=== PATIENT | female | born 1990 | race African-American/Black ===

== ENCOUNTER 2017-11-26 02:45 | Inpatient (IN) | payer OTHER ==
[~2017-11-26] VITALS: Ht 172.7 cm; Wt 64.4 kg
[2017-11-26 02:49] VITALS: Ht 172.7 cm; Wt 64.4 kg
[2017-11-26 03:38] LABS: BASOPHIL % 0.4 % (0-2); PLATELET COUNT 368 x10^3mcL (130-400); RED CELL DISTRIBUTION WIDTH 14.2 % (11.5-14.5)
[2017-11-26 03:47] LABS: CALCIUM 8.7 mg/dL (8.5-10.1); CARBON DIOXIDE 23.7 mmol/L (21-32); CHLORIDE SERUM 106 mmol/L (98-107); GFR1 > 60 mL/min; GLUCOSE SERUM 89 mg/dL (74-106); POTASSIUM SERUM 3.6 mmol/L (3.5-5.1); SODIUM SERUM 144 mmol/L (136-145)
[2017-11-26 04:47] LABS: microscopic required? NO
[2017-11-26 05:00] LABS: UA SPECIFIC GRAVITY <=1.005 (1.005-1.035); urine erythrocyte NEGATIVE (NEGATIVE)
[2017-11-26 05:08] LABS: AMPHETAMINE QUAL UR NONE DETECTED (NEG <=1000)
[2017-11-26 05:15] LABS: T3 TOTAL 0.9 ng/mL
[2017-11-26 05:28] LABS: CHOLESTEROL/HDL RATIO 4.1; MAGNESIUM 2.4 mg/dL (1.8-2.4); PHOSPHOROUS 4.4 mg/dL (2.5-4.9)
[2017-11-26 05:32] VITALS: BP 111/62
[2017-11-26 05:36] LABS: FREE T4 1.3 ng/dL (0.76-1.46); FREE THYROXINE INDEX 3.8 ug/dL (1.4-4.5); T4(THYROXINE) 10.6 ug/dL (4.7-13.3)
[2017-11-26 05:52] VITALS: BP 111/62
[2017-11-26 09:39] VITALS: BP 112/73
[2017-11-26 13:37] VITALS: BP 123/72
[2017-11-26 17:12] VITALS: BP 145/89
[2017-11-26 21:26] VITALS: BP 133/80
[2017-11-27 04:55] VITALS: BP 113/66
[2017-11-27 06:44] LABS: PLATELET COUNT 313 x10^3mcL (130-400); RED CELL DISTRIBUTION WIDTH 14.1 % (11.5-14.5)
[2017-11-27 07:05] LABS: CALCIUM 8.8 mg/dL (8.5-10.1); CARBON DIOXIDE 25.3 mmol/L (21-32); CHLORIDE SERUM 107 mmol/L (98-107); CREATININE SERUM 0.7 mg/dL (0.6-1.0); GFR1 > 60 mL/min; GLUCOSE SERUM 144 mg/dL (74-106); POTASSIUM SERUM 4.1 mmol/L (3.5-5.1); SODIUM SERUM 143 mmol/L (136-145)
[2017-11-27 08:40] VITALS: BP 107/53
[2017-11-27 10:23] LABS: BAND NEUTROPHIL 1 % (0-10); BASOPHIL 0 % (0-2); MONOCYTE 4 % (0-7); SEGMENTED NEUTROPHILS 89 % (37-75)
[2017-11-27 10:25] LABS: PLATELET MORPHOLOGY PLATELETS NORMAL; rbc morphology (normal/abnorm) ABNORMAL (NORMAL); target cell (codocyte) 1+
[2017-11-27] MEDS ORDERED: MEDDP PO (11:28)
[2017-11-27 11:58] VITALS: BP 107/53
== END 2017-11-27 12:23 | disposition home or self-care (01) | DRG 915 ==
LOC: ED 02:45 → DU 04:24 → MU 04:24 → DU 05:20 → MU 11-27 07:57
PROVIDERS: Emergency Medicine; Family Medicine
DX: T78.3XXA Angioneurotic edema, initial encounter (principal); N17.0 Acute kidney failure with tubular necrosis; T38.0X5A Adverse effect of glucocorticoids and synthetic analogues, initial encounter; I16.0 Hypertensive urgency; E78.5 Hyperlipidemia, unspecified; D64.9 Anemia, unspecified; Y92.89 Other specified places as the place of occurrence of the external cause
CPT/HCPCS: 83880; 84439; G0480; J0171; J1200; J2930; J3490; J7030